=== PATIENT | female | born 1995 ===

== ENCOUNTER 2024-01-15 08:01 | Inpatient (IN) | payer OTHER ==
[~2024-01-15 08:01] MED LIST: Acetaminophen 325 MG Tab PO PRN; Calcium Carbonate 500 MG Tab.Chew PO PRN; Carboprost Tromethamine 250 MCG/1 ML Amp IM PRN; HYDROmorphone 0.5 MG/0.5 ML Syringe ONE; Methylergonovine 0.2 MG/1 ML Amp IM PRN; Misoprostol 400 MCG (4 X 100 MCG TAB) RECTAL PRN; Ondansetron 4 MG/2 ML SDV IVPUSH PRN; Ondansetron 4 MG/2 ML SDV ONE; Oxytocin/Normal Saline 30 UNIT/500 ML BAG IV SCH; Sodium Chloride 0.9% 10 ML Syringe FLUSH PRN; Tranexamic Acid 1,000 MG in Sodium Chloride 0.9% 100 ML IV PRN; fentaNYL 100 MCG/2 ML SDV IVPUSH PRN
[2024-01-15] MEDS ORDERED: Misoprostol 50 MCG (1/2 of 100 MCG) Tab PO SCH (08:30)
[2024-01-15 08:46] LABS: HEMATOCRIT 37.1 % (37.0-47.0); HEMOGLOBIN 13.1 g/dL (12.0-16.0); MEAN CORPUSCULAR HGB CONC 35.3 g/dL (33.0-35.0); MEAN CORPUSCULAR VOLUME 90.7 fL (80-100); RED BLOOD CELL COUNT 4.09 10^6/uL (4.2-5.4); WHITE BLOOD CELL COUNT,WBC 8.6 10^3/uL (5.0-10.0)
[2024-01-15] MEDS ORDERED: Penicillin G Potassium 5 MILLUNITS in Sodium Chloride 0.9% 100 ML IV ONE (10:00)
[2024-01-15] MEDS: Misoprostol 100 MCG Tab PO ONE ×2 (10:14→18:22)
[2024-01-15] MEDS ORDERED: Penicillin G Potassium 3 MILLUNITS in Sodium Chloride 0.9% 100 ML IV SCH (10:30)
[2024-01-15] MEDS: Lactated Ringers 1,000 ML IV SCH (14:44)
[2024-01-15] MEDS: Penicillin G Potassium 5 MILLUNITS in Sodium Chloride 0.9% 100 ML IV ONE (14:45)
[2024-01-15] MEDS: Misoprostol 25 MCG (1/4 of 100 MCG) Tab VAG SCH (15:14)
[2024-01-15 15:52] LABS: APPEARANCE,URINE SLIGHTLY CLOUDY (CLEAR); BILIRUBIN,URINE NEGATIVE (NEGATIVE); COLOR,URINE YELLOW (YELLOW); GLUCOSE,URINE NEGATIVE (NEGATIVE); KETONES,URINE NEGATIVE (NEGATIVE); LEUKOCYTE ESTERASE,URINE TRACE (NEGATIVE); NITRITE,URINE NEGATIVE (NEGATIVE); OCCULT BLOOD,URINE TRACE-INTACT (NEGATIVE); PH,URINE 5.5 (5.0-9.0); PROTEIN,URINE NEGATIVE (NEGATIVE); UROBILINOGEN,URINE 0.2 mg/dL (0.2-1.0)
[2024-01-15 16:19] LABS: CREATININE,URINE RAND 86.97 mg/dL (No establ ref range); PROTEIN CREATININE RATIO,URINE 126.5 mg/g (<150.0)
[2024-01-15 17:16] LABS: CREATININE 0.56 mg/dL (0.55-1.02); EST CRCL DRUG DOSING (CG) 136.99 mL/min; URIC ACID 3.5 mg/dL (2.6-6.0)
[2024-01-15] MEDS: Penicillin G Potassium 3 MILLUNITS in Sodium Chloride 0.9% 100 ML IV SCH (18:20)
[2024-01-15] MEDS: Oxytocin/Normal Saline 30 UNIT/500 ML BAG IV SCH (19:40)
[2024-01-15] MEDS ORDERED: Methylergonovine 0.2 MG/1 ML Amp ONE (19:54)
[2024-01-15] MEDS ORDERED: Oxytocin/Normal Saline 30 UNIT/500 ML BAG ONE ×2 (19:54→20:01)
[2024-01-15] MEDS ORDERED: ceFAZolin 2 GM Vial ONE (19:54)
[2024-01-15] MEDS ORDERED: Tranexamic Acid 1,000 MG/10 ML Vial ONE (21:52)
[2024-01-15] MEDS ORDERED: Misoprostol 400 MCG (4 X 100 MCG TAB) RECTAL PRN (22:19)
[2024-01-15] MEDS ORDERED: Carboprost Tromethamine 250 MCG/1 ML Amp IM PRN (22:19)
[2024-01-15] MEDS ORDERED: Naloxone 2 MG/2 ML Syringe IVPUSH PRN (22:19)
[2024-01-15] MEDS ORDERED: ePHEDrine 50 MG/ML SDV IVPUSH PRN (22:19)
[2024-01-15] MEDS ORDERED: Bisacodyl 10 MG Supp RECTAL PRN (22:19)
[2024-01-15] MEDS ORDERED: Acetaminophen 325 MG Tab PO PRN (22:19)
[2024-01-15] MEDS ORDERED: Acetaminophen/oxyCODONE 325-5 MG Tab PO PRN (22:19)
[2024-01-15] MEDS ORDERED: diphenhydrAMINE 50 MG/ML SDV IV PRN (22:19)
[2024-01-15] MEDS ORDERED: Ondansetron 4 MG/2 ML SDV IVPUSH PRN (22:19)
[2024-01-15] MEDS ORDERED: diphenhydrAMINE 50 MG/ML SDV IVPUSH PRN (22:19)
[2024-01-15] MEDS ORDERED: Tranexamic Acid 1,000 MG in Sodium Chloride 0.9% 100 ML IV PRN (22:19)
[2024-01-15] MEDS ORDERED: Witch Hazel Medicated Pads 100/Jar TOP PRN (22:19)
[2024-01-15] MEDS ORDERED: Methylergonovine 0.2 MG/1 ML Amp IM PRN (22:19)
[2024-01-15] MEDS: Ibuprofen 800 MG Tab PO SCH (23:27)
[2024-01-15] MEDS: Lactated Ringers 1,000 ML IV ONE (23:38)
[2024-01-15] MEDS: Lidocaine 1% 30 ML SDV INJECT ONE (23:39)
[2024-01-15] MEDS: Acetaminophen/oxyCODONE 325-5 MG Tab PO SCH (23:39)
[2024-01-16] MEDS ORDERED: Ketorolac 30 MG/ML SDV IVPUSH SCH (01:00)
[2024-01-16] MEDS: Ketorolac 30 MG/ML SDV IVPUSH SCH (03:11)
[2024-01-16] MEDS: Lactated Ringers 1,000 ML IV SCH (06:15)
[2024-01-16 06:24] LABS: HEMATOCRIT 34.1 % (37.0-47.0); HEMOGLOBIN 11.8 g/dL (12.0-16.0)
[2024-01-16] MEDS: Simethicone 80 MG Tab.Chew PO SCH (09:30)
[2024-01-16] MEDS: Docusate Sodium 100 MG Cap PO PRN (09:30)
[2024-01-16] MEDS: Prenatal Multivitamin with Calcium/Folic Acid/Iron Tab PO SCH (09:30)
[2024-01-16] MEDS: Ibuprofen 800 MG Tab PO SCH (14:49)
[2024-01-16] MEDS ORDERED: Mineral Oil/Petrolatum Oint 100 GM OINT TOP PRN (15:47)
[2024-01-16] MEDS: Acetaminophen/oxyCODONE 325-5 MG Tab PO PRN (21:33)
[2024-01-16] MEDS: Measles, Mumps & Rubella Vaccine 0.5 ML SDV SUBCUT ONE (21:34)
[2024-01-16] MEDS ORDERED: Ibuprofen 800 MG Tab PO SCH (23:30)
== END 2024-01-17 17:30 | disposition home or self-care (01) | DRG 788 ==
LOC: DL.OBCHECK 08:01 → DL.OB 08:06 → OBSVTOIN 20:45
PROVIDERS: ADMIT Student in an Organized Health Care Education/Training Program; ATTEND Student in an Organized Health Care Education/Training Program
PROC: 10D00Z1 Extraction of Products of Conception, Low, Open Approach (ICD-10-PCS; principal; 2024-01-15 20:00)
DX: O99.824 Streptococcus B carrier state complicating childbirth (principal); Z37.0 Single live birth; Z3A.39 39 weeks gestation of pregnancy; O76 Abnormality in fetal heart rate and rhythm complicating labor and delivery; O13.4 Gestational [pregnancy-induced] hypertension without significant proteinuria, complicating childbirth
CPT/HCPCS: 36415; 76819; 81003; 82565; 82570; 83615; 84156; 84450; 84460; 84520; 84550; 85014; 85018; 85027; 86850; 86900; 86901; 90471; 90707; A9270-GY; J1885; J2540; J2590; J3490; J7120